=== PATIENT | male | born 1930 | race Caucasian/White ===

== ENCOUNTER 2016-06-07 06:50 | Day surgery (SDC) | payer MEDICARE, BC ==
--- NOTE | 2016-06-06 17:05 | NUR ---
NN PT HAS AN IMPLANTED PACEMAKER, MODEL BIOTRONIC CARDIO MESSANGER SMART. IT WAS INSERTED BY DR. PEPE VANEGAS. PT WILL BRING INFORMATION CARD WITH HIM TOMORROW.
[~2016-06-07] VITALS: Ht 179.1 cm; Wt 76.0 kg
[~2016-06-07 06:50] MED LIST: AMIO200T35 PO; ATOR20TA59 PO; CARV12.52 PO; CHOL100018 PO; DILT240C96 PO; DIPH25CA84 PO; DOCU100C PO; DUTA0.5C9 PO; FEXO180T94 PO; LACT1CAP80 PO; LEVO137T2 PO; LORA1TAB3 PO; LOSA100T44 PO; MAGN400T25 PO; MOME17SP2 EA NOSTRIL; MULT-806 PO; NIAC500C9 PO; RANI-252 PO
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
--- OUTSIDE RECORDS SUMMARY | 2016-06-07 06:54 | XMS REPORT | Continuity of Care Document ---
Author Author [facility] Address [address] [place] [address] Phone Care Team Providers Care Garbage Collector Name Role Phone Anthony Bennett PP Unavailable Sb Vera RP Unavailable Payers Payer name Insurance type Covered republican ID Authorization(s) Unknown Problems Condition Effective Dates (start - stop) Clinical Status SENSONE[place] HEAR LOSS ASYM - *Chronic Tinnitus, unspecified - *Chronic HYPERTENSION NOS - EPISTAXIS - [...] hearing loss of combined types - *Chronic Cough - *Chronic Closed fracture of distal phalanx or phalanges of hand - *Acute Other seborrheic keratosis - *Resolved Colon polyps - *Chronic Unexplained weight loss - *Acute Sensorineural hearing loss of combined types - *Chronic DM (diabetes mellitus) - *Controlled Sinusitis - *Acute Postlaminectomy syndrome of lumbar region - *Symptomatic Radiculitis, Thoracic or Lumbar - *Symptomatic Flat-back syndrome - *Symptomatic Right groin mass - *Chronic Rhinitis sicca - *Chronic Sinusitis, acute maxillary - *Acute Fracture of metatarsal bone(s), closed - *Acute Lumbago - *Chronic Postlaminectomy syndrome of lumbar region - *Chronic Other lordosis, acquired - *Chronic Lumbosacral spondylosis without myelopathy - *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 - Active allopurinol 300 mg tablet take [...] oral route every day 0 - Active levothyroxine 150 mcg tablet Take 1 tablet by mouth every day. 2013 - Active Immunizations Vaccine Date Status Comments Td (7 yrs or older) completed Flu (split) (3 yrs or older) completed Flu (split) (3 yrs or older) completed Results Test Name Date and Time Measure Units Reference Range Abnormal Flag Comments Unknown Vital Signs Date / Time: Height Weight Pulse Rate Blood Pressure Temperature Unknown Procedures Procedure Date Unknown Encounters Encounter Location Date Patient Visit [facility] Audiology Patient Visit Conversion Patient Visit [facility] [place] Patient Visit [facility] Patient [facility] Patient [facility] Patient Visit [facility] [place] Patient [facility] Patient [facility] Patient [facility] Patient [facility] Patient [facility] Patient Visit [facility] [place] Patient Visit [facility] Patient Visit [facility] New FM Patient [facility] FM Patient Visit [facility] [place] Patient Visit [facility] New FM Patient Visit [facility] New FM Patient Visit [facility] Audiology Patient Visit [facility] Patient [facility] Patient Visit [facility] Audiology [facility] FM Patient Visit [facility] Ortho Patient Visit [facility] [place] Patient Visit [facility] New FM Patient Visit [facility] Audiology Patient Visit [facility] New FM Patient Visit [facility] Pain Patient Visit [facility] New FM Patient Visit [facility] ENT Patient Visit [facility] E21 Pod Patient Visit [facility] Pain Patient Visit [facility] Audiology Patient Visit [facility] New FM Advance Directives Directive Effective Date Unknown
--- OUTSIDE RECORDS SUMMARY | 2016-06-07 06:54 | XMS REPORT | Referral Summary ---
Author Author [facility] Organization [facility] Address Unknown Phone Unavailable Care Team Providers Care Cephalometric Technician Name Role Phone Nelson Powell Primary Care Physician [phone] Encounter Date(s): 01/25/16 - 01/25/16 [facility] [address] [place], [place] [address] Discharge Diagnosis: Actinic keratoses Discharge Diagnosis: Capillary hemangioma Discharge Diagnosis: Seborrheic keratosis Discharge Diagnosis: Solar degeneration Discharge Disposition: 01-Home or Self Care Attending Physician: Pranav Gomez MD Referring Physician: Lurdes Powell MD Vital Signs No data available for this section Problem List Condition Effective Dates Status Health Status Informant Allergic Active rhinitis(Confirmed) Sensorineural Active hearing loss, asymmetrical(Confirm ed) Cardiac Active arrhythmia(Confirmed ) Epistaxis(Confirmed) Active Flat back Active syndrome(Confirmed) Fracture of Active wrist-(R)(Confirmed) Gastric Active reflux(Confirmed) Gout(Confirmed) Active Hearing Active loss(Confirmed) Hyperlipidemia(Confi Active rmed) Hypertension(Confirm Active ed) Irregular Active heartbeat(Confirmed) Low back pain Active (finding)(Confirmed) Lumbar Active post-laminectomy syndrome (disorder)(Confirmed ) Lumbosacral Active neuritis(Confirmed) 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 ) Melanoma(Confirmed) Active Rheumatoid Active arthritis(Confirmed) Sinus Active infection(Confirmed) Allergies, Adverse Reactions, Alerts Substance Reaction Severity Status acetaminophen Active morphine Active neomycin Active oxyCODONE Active penicillin Active Medications Maggie Allergy 60 mg oral tablet 60 mg 1 tabs, Oral, Daily, # 60 tabs, 3 Refill(s), Pharmacy: [facility] # [id number], 1 tabs Oral Daily Start Date: 09/20/15 Status: Ordered Maggie-D 24 Hour Allergy & Congestion 180 mg-240 mg oral tablet, extended release tabs, Oral, Daily, 0 Refill(s) Start Date: 10/17/13 Status: Ordered amiodarone 0 Refill(s) Start Date: 10/17/13 Status: Ordered Avodart 0.5 mg oral capsule 0.5 mg 1 caps, Oral, Daily, # 90 caps, 5 Refill(s), Pharmacy: [facility] # [id number], 1 caps Oral Daily Start Date: 09/20/15 Status: Ordered Cartia XT 240 mg/24 hours oral capsule, extended release See Instructions, TAKE ONE CAPSULE BY MOUTH EVERY DAY, # 90 caps, 3 Refill(s), Pharmacy: [facility] #[id number], TAKE ONE CAPSULE BY MOUTH EVERY DAY Start Date: 09/20/15 Status: Ordered carvedilol 6.25 mg oral tablet 1 tabs, Oral, BID, # 60 tabs, 0 Refill(s) Start Date: 10/17/13 Status: Ordered Coreg 6.25 mg oral tablet 6.25 mg 1 tabs, Oral, BID, # 180 tabs, 8 Refill(s), Pharmacy: [facility] # [id number], 1 tabs Oral BID Start Date: 09/20/15 Status: Ordered Dulcolax Stool Softener 100 mg oral capsule 1 caps, Oral, BID, as needed for constipation, # 20 caps, 0 Refill(s) Start Date: 10/17/13 Status: Ordered Klor-Con M20 oral tablet, extended release 20 mEq 1 tabs, Oral, Daily, # 90 tabs, 8 Refill(s), Pharmacy: [facility] # [id number], 1 tabs Oral Daily Start Date: 09/20/15 Status: Ordered levothyroxine 137 mcg (0.137 mg) oral tablet 137 mcg 1 tabs, Oral, Daily, # 90 tabs, 7 Refill(s), Pharmacy: [facility] #[id number], 1 tabs Oral Daily Start Date: 09/20/15 Status: Ordered Lipitor 20 mg oral tablet 20 mg 1 tabs, Oral, Daily, # 90 tabs, 9 Refill(s), Pharmacy: [facility] # [id number], 1 tabs Oral Daily Start Date: 09/20/15 Status: Ordered losartan 100 mg oral tablet 100 mg 1 tabs, Oral, Daily, # 90 tabs, 9 Refill(s), Pharmacy: [facility] # [id number], 1 tabs Oral Daily Start Date: 09/20/15 Status: Ordered losartan-hydrochlorothiazide 100 mg-25 mg oral tablet 1 tabs, Oral, Daily, # 30 tabs, 0 Refill(s) Start Date: 10/17/13 Status: Ordered magnesium oxide Oral, 0 Refill(s) Start Date: 10/17/13 Status: Ordered multivitamin Daily, 0 Refill(s) Start Date: 10/17/13 Status: Ordered niacin 500 mg oral tablet 2 tabs, Oral, TID, # 180 tabs, 0 Refill(s) Start Date: 10/17/13 Status: Ordered Pacerone 200 mg oral tablet 1/2 tabs, Oral, Daily, # 45 tabs, 10 Refill(s), Pharmacy: [facility] # [id number], 1/2 tabs Oral Daily,x90 days Start Date: 09/20/15 Stop Date: 06/06/18 Status: Ordered Probiotic Formula caps, Oral, Daily, 0 Refill(s) Start Date: 10/17/13 Status: Ordered Robaxin-750 oral tablet 750 mg 1 tabs, Oral, BID, # 60 tabs, 1 Refill(s), Pharmacy: [facility] # [id number], 1 tabs Oral BID Start Date: 09/20/15 Status: Ordered Vitamin D3 1000 intl units oral tablet 1 tabs, Oral, Daily, # 30 tabs, 0 Refill(s) Start Date: 10/17/13 Status: Ordered Zantac 150 oral tablet 150 mg 1 tabs, Oral, Daily, # 90 tabs, 4 Refill(s), Pharmacy: [facility] # [id number], 1 tabs Oral Daily Start Date: 09/20/15 Status: Ordered Results No data available for this section Immunizations Vaccine Date Refusal Reason hepatitis A adult vaccine 06/06/04 influenza virus vaccine, H1N1, inactivat 03/31/09 influenza virus vaccine, inactivated 12/26/10 influenza virus vaccine, inactivated 12/27/09 influenza virus vaccine, inactivated 12/07/08 influenza virus vaccine, inactivated 01/13/08 influenza virus vaccine, inactivated 01/16/07 influenza virus vaccine, inactivated 01/15/06 influenza virus vaccine, inactivated 01/12/99 influenza virus vaccine, inactivated 01/11/98 influenza virus vaccine, inactivated 01/21/97 influenza virus vaccine, live 01/27/13 influenza virus vaccine, live 01/09/12 pneumococcal 23-polyvalent vaccine 03/31/09 tetanus-diphth toxoids (Td) adult/adol 06/19/13 zoster vaccine live 05/11/10 Procedures Procedure Date Related Diagnosis Body Site Destruction (eg, laser surgery, 01/25/16 electrosurgery, cryosurgery, chemosurgery, surgical curettement), premalignant lesions (eg, actinic keratoses); first lesion Destruction (eg, laser surgery, 01/25/16 electrosurgery, cryosurgery, chemosurgery, surgical curettement), premalignant lesions (eg, actinic keratoses); second through 14 lesions, each (List separately in addition to code for first lesion) Carpal tunnel syndrome-(R) Hand Colonoscopy with polypectomy Hernia repair-Inguinal, bilateral Release-Trigger finger (R) Hand Release-Trigger Finger (L) Hand Repair-Nasal Septum Rotator cuff repair-(R) subacromial decompression Pqrxzjz-Pkxd-[id number] Pacemaker Lrngcxx-P2-T6 Fusion and Laminectomy Surgery-Prostate Tonsillectomy Social History Social History Type Response Smoking Status Former smoker; Type: Cigarettes Assessment and Plan Extracted from: Title: Ambulatory Patient Education Author: Pranav Gomez MD Date: 01/25/16 Family Medicine Actinic Keratosis Actinic keratosis is a precancerous growth on the skin. This means it could develop into skin cancer if it is not treated. About 1% of actinic keratoses turn into skin cancer within a year. It is important to have all such growths removed to prevent them from developing into skin cancer. CAUSES Actinic keratosis is caused by getting too much ultraviolet (UV) radiation from the sun or other UV light sources. RISK FACTORS Factors that increase your chances of getting actinic keratosis include: Having light-colored skin and blue eyes. Having blonde or red hair. Spending a lot of time in the sun. Age. The risk of actinic keratosis increases with age. SYMPTOMS Actinic keratosis growths look like scaly, rough spots of skin. They can be as small as a pinhead or as big as a quarter. They may itch, hurt, or feel sensitive. Sometimes there is a little tag of pink or batres skin growing off them. In some cases, actinic keratoses are easier felt than seen. They do not go away with the use of moisturizing lotions or creams. Actinic keratoses appear most often on areas of skin that get a lot of sun exposure. These areas include the: Scalp. Face. Ears. Lips. Upper back. Backs of the hands. Forearms. DIAGNOSIS Your health care provider can usually tell what is wrong by performing a physical exam. A tissue sample (biopsy) may also be taken and examined under a microscope. TREATMENT Actinic keratosis can be treated several ways. Most treatments can be done in your health care provider's office. Treatment options may include: Curettage. A tool is used to gently scrape off the growth. Cryosurgery. Liquid nitrogen is applied to the growth to freeze it. The growth eventually falls off the skin. Medicated creams, such as 5-fluorouracil or imiquimod. The medicine destroys the cells in the growth. Chemical peels. Chemicals are applied to the growth and the outer layers of skin are peeled off. Photodynamic therapy. A drug that makes your skin more sensitive to light is applied to the skin. A strong, blue light is aimed at the skin and destroys the growth. PREVENTION To prevent future sun damage: Try to avoid the sun between 10:00 a.m. and 4:00 p.m. when it is the strongest. Use a sunscreen or sunblock with SPF 30 or greater. Apply sunscreen at least 30 minutes before exposure to the sun. Always wear protective hats, clothing, and sunglasses with UV protection. Avoid medicines, herbs, and foods that increase your sensitivity to sunlight. Avoid tanning beds. HOME CARE INSTRUCTIONS If your skin was covered with a bandage, change and remove the bandage as directed by your health care provider. Keep the treated area dry as directed by your health care provider. Apply any creams as prescribed by your health care provider. Follow the directions carefully. Check your skin regularly for any changes. Visit a skin doctor (information technology administrator) every year for a skin exam. SEEK MEDICAL CARE IF: Your skin does not heal and becomes irritated, red, or bleeds. You notice any changes or new growths on your skin. This information is not intended to replace advice given to you by your health care provider. Make sure you discuss any questions you have with your health care provider. Document Released: 06/08/2009 Document Revised: 04/02/2015 Document Reviewed: [employer] Patient Education 2016 [employer] Seborrheic Keratosis Seborrheic keratosis is a common, noncancerous (benign) skin growth that can occur anywhere on the skin.It looks like "stuck-on," waxy, rough, navarrete, brown, or black spots on the skin. These skin growths can be flat or raised.They are often called "barnacles" because of their pasted-on appearance.Usually, these skin growths appear in adulthood, around age 30, and increase in number as you age. They may also develop during or following estrogen therapy. Many people may only have one growth appear in their lifetime, while some people may develop many growths. CAUSES It is unknown what causes these skin growths, but they appear to run in families. SYMPTOMS Seborrheic keratosis is often located on the face, chest, shoulders, back, or other areas. These growths are: Usually painless, but may become irritated and itchy. Yellow, brown, black, or other colors. Slightly raised or have a flat surface. Sometimes rough or wart-like in texture. Often waxy on the surface. Round or oval-shaped. Sometimes "stuck-on" in appearance. Sometimes single, but there are usually many growths. Any growth that bleeds, itches on a regular basis, becomes inflamed, or becomes irritated needs to be evaluated by a hide and skin classer (information technology administrator). DIAGNOSIS Diagnosis is mainly based on the way the growths appear. In some cases, it can be difficult to tell this type of skin growth from skin cancer. A skin growth tissue sample (biopsy) may be used to confirm the diagnosis. TREATMENT Most often, treatment is not needed because the skin growths are benign.If the skin growth is irritated easily by clothing or jewelry, causing it to scab or bleed, treatment may be recommended. Patients may also choose to have the growths removed because they do not like their appearance. Most commonly, these growths are treated with cryosurgery. In cryosurgery, liquid nitrogen is applied to "freeze" the growth. The growth usually falls off within a matter of days. A blister may form and dry into a scab that will also fall off. After the growth or scab falls off, it may leave a dark or light spot on the skin. This color may fade over time, or it may remain permanent on the skin. HOME CARE INSTRUCTIONS If the skin growths are treated with cryosurgery, the treated area needs to be kept clean with water and soap. SEEK MEDICAL CARE IF: You have questions about these growths or other skin problems. You develop new symptoms, including: A change in the appearance of the skin growth. New growths. Any bleeding, itching, or pain in the growths. A skin growth that looks similar to seborrheic keratosis. This information is not intended to replace advice given to you by your health care provider. Make sure you discuss any questions you have with your health care provider. Document Released: 04/14/2011 Document Revised: 06/03/2012 Document Reviewed: [employer] Interactive Patient Education 2016 [employer]. Gupta Angioma Gupta angiomas are noncancerous (benign) skin growths. They are made up of a clump of blood vessels. They occur most often in people over the age of 30. CAUSES The cause of these skin growths is unknown, but they appear to run in families. SYMPTOMS Gupta angiomas are smooth, round, red bumps on the skin. They can be as small as a pinhead or as big as a pencil eraser. The color may darken to a purplish red over time. Gupta angiomas are usually found on the trunk, but they can occur anywhere on the body. They are painless, but they may bleed if they are injured. The bleeding is not serious and will stop when firm pressure is applied. DIAGNOSIS Your health care provider can usually tell what is wrong by performing a physical exam. A tissue sample (biopsy) may also be taken and examined under a microscope. TREATMENT Usually no treatment is needed for gupta angiomas. They may be removed for improved appearance (cosmetic) reasons. Sometimes, gupta angiomas come back after removal. Removal methods include: Electrocautery. Heat is used to burn the growth off the skin. Cryosurgery. Liquid nitrogen is applied to the growth to freeze it. The growth eventually falls off the skin. Surgery. HOME CARE INSTRUCTIONS If your skin was covered with a bandage, change and remove the bandage as directed by your health care provider. Check your skin regularly for any changes. SEEK MEDICAL CARE IF: You notice any changes or new growths on your skin. This information is not intended to replace advice given to you by your health care provider. Make sure you discuss any questions you have with your health care provider. Document Released: 05/21/2002 Document Revised: 04/02/2015 Document Reviewed: [employer] Interactive Patient Education 2016 [employer] No follow up information was provided. Extracted from: Title: Office Visit Note Author: Pranav Gomez MD Date: 01/25/16 Assessment/Plan Actinic keratoses Capillary hemangioma Seborrheic keratosis Solar degeneration
--- OUTSIDE RECORDS SUMMARY | 2016-06-07 06:54 | XMS REPORT | Referral Summary ---
Author Organization Unknown Address Unknown Phone Unavailable Care Team Providers Care Human Service Worker Name Role Phone Garry Ramirez Primary Care Physician [phone] Encounter VC Date(s): 04/07/14 - 04/07/14 [facility] Jose Alberto, Audiology [address] [place] [address] [place] [address] [facility] Discharge Diagnosis: Sinus infection Discharge Diagnosis: Sensorineural hearing loss, asymmetrical Discharge Disposition: Home or Self Care Attending Physician: Laura Armstrong Admitting Physician: Laura Armstrong Referring Physician: Garry Ramirez MD Vital Signs No data available for [...] neomycin Active oxyCODONE Active penicillin Active Medications Maggie-D 24 Hour Allergy & Congestion 180 mg-240 mg oral tablet, extended release tabs, Oral, Daily, 0 Refill(s) Start Date: 10/17/13 Status: Ordered amiodarone 0 Refill(s) Start Date: 10/17/13 Status: Ordered Avodart 0.5 mg oral capsule 1 caps, Oral, Daily, # 30 caps, 0 Refill(s) Start Date: 10/17/13 Status: Ordered Cartia XT 240 mg/24 hours oral capsule, extended release See Instructions, TAKE ONE CAPSULE BY MOUTH EVERY DAY, # 30 caps, 4 Refill(s), eRx: [facility] #[id number], TAKE ONE CAPSULE BY MOUTH EVERY DAY Special Instructions: TAKE ONE CAPSULE BY MOUTH EVERY DAY Start Date: 02/09/14 Status: Ordered carvedilol 6.25 mg oral tablet 1 tabs, Oral, BID, # 60 tabs, 0 Refill(s) Start Date: 10/17/13 Status: Ordered Dulcolax Stool Softener 100 mg oral capsule 1 caps, Oral, BID, as needed for constipation, # 20 caps, 0 Refill(s) Start Date: 10/17/13 Status: Ordered Klor-Con mEq, Oral, BID, 0 Refill(s) Start Date: 10/17/13 Status: Ordered levothyroxine 150 mcg (0.15 mg) oral tablet See Instructions, TAKE ONE TABLET BY MOUTH EVERY DAY, # 30 tabs, 2 Refill(s), eRx: [facility] #[id number], TAKE ONE TABLET BY MOUTH EVERY DAY Special Instructions: TAKE ONE TABLET BY MOUTH EVERY DAY Start Date: 12/01/13 Status: Ordered Lipitor 20 mg oral tablet 1 tabs, Oral, Daily, # 30 tabs, 0 Refill(s) Start Date: 10/17/13 Status: Ordered losartan-hydrochlorothiazide 100 mg-25 mg oral tablet 1 tabs, Oral, Daily, # 30 tabs, 0 Refill(s) Start Date: 10/17/13 Status: Ordered magnesium oxide Oral, 0 Refill(s) Start Date: 10/17/13 Status: Ordered metFORMIN 500 mg oral tablet See Instructions, TAKE ONE TABLET BY MOUTH TWICE A DAY WITH MORNING AND EVENING MEALS, # 60 tabs, 2 Refill(s), eRx: [facility] #[id number], TAKE ONE TABLET BY MOUTH TWICE A DAY WITH MORNING AND EVENING MEALS Special Instructions: TAKE ONE TABLET BY MOUTH TWICE A DAY WITH MORNING AND EVENING MEALS Start Date: 12/01/13 Status: Ordered multivitamin Daily, 0 Refill(s) Start Date: 10/17/13 Status: Ordered niacin 500 mg oral tablet 2 tabs, Oral, TID, # 180 tabs, 0 Refill(s) Start Date: 10/17/13 Status: Ordered Prevacid 15 mg oral delayed release capsule 1 caps, Oral, Daily, # 30 caps, 0 Refill(s) Start Date: 10/17/13 Status: Ordered Probiotic Formula caps, Oral, Daily, 0 Refill(s) Start Date: 10/17/13 Status: Ordered Vitamin D3 1000 intl units oral tablet 1 tabs, Oral, Daily, # 30 tabs, 0 Refill(s) Start Date: 10/17/13 Status: Ordered Results No data available for [...] Procedures Procedure Date Related Diagnosis Body Site Carpal tunnel syndrome-(R) Hand Colonoscopy with polypectomy Hernia repair-Inguinal, bilateral Release-Trigger finger (R) Hand Release-Trigger Finger (L) Hand Repair-Nasal Septum Rotator cuff repair-(R) subacromial decompression Jvilhfq-Xoxu-jcodvsm Pacemaker Apklybn-Y3-W3 Fusion and Laminectomy Surgery-Prostate Tonsillectomy Social History Social History Type Response Smoking Status Former smoker; Type: Cigarettes Assessment and Plan No data available for this section
--- OUTSIDE RECORDS SUMMARY | 2016-06-07 06:54 | XMS REPORT | Referral Summary ---
Author Author [facility] Organization [facility] Address Unknown Phone Unavailable Care Team Providers Care Gem Technician Name Role Phone Garry Ramirez Primary Care Physician [phone] Encounter VC Date(s): 09/01/14 - 09/01/14 [facility] Audiology [address] [place] [address] [place] Alexis [id number] - Discharge Disposition: 01-Home or Self Care Attending Physician: Laura Armstrong Admitting Physician: Laura Armstrong Vital Signs No data available for this [...] DAY, # 30 caps, 4 Refill(s), eRx: [facility] #[id number], TAKE ONE CAPSULE BY MOUTH EVERY DAY [...] DAY, # 30 tabs, 2 Refill(s), eRx: [facility] #[id number], TAKE ONE TABLET BY MOUTH EVERY DAY [...] MEALS, # 60 tabs, 2 Refill(s), eRx: [facility] #[id number], TAKE ONE TABLET BY MOUTH TWICE A [...] Repair-Nasal Septum Rotator cuff repair-(R) subacromial decompression Pejdxvh-Cqgx-mynarzw Pacemaker Tofjvzo-W2-N5 Fusion and Laminectomy Surgery-Prostate Tonsillectomy Social History Social History Type Response Smoking Status Former smoker; Type: Cigarettes Assessment and Plan No data available for this section
--- OUTSIDE RECORDS SUMMARY | 2016-06-07 06:55 | XMS REPORT | Continuity of Care Document ---
Author Author [facility] Address Unknown Phone Unavailable Care Team Providers Care Lead Recoverer Name Role Phone Anthony Bennett PP Unavailable Sb Vera RP Unavailable Payers Payer name Insurance type Covered constitution party ID Authorization(s) Unknown Problems Condition Effective Dates (start - stop) Clinical Status Lumbago - *Chronic Postlaminectomy syndrome of lumbar region - *Chronic Other lordosis, acquired - *Chronic Lumbosacral spondylosis without myelopathy - *Chronic HYPERTENSION NOS - EPISTAXIS - [...] combined types - *Chronic Cough - *Chronic Other seborrheic keratosis - *Resolved Colon polyps - *Chronic Unexplained weight loss - *Acute Sensorineural hearing loss of combined types - *Chronic DM (diabetes mellitus) - *Controlled Sinusitis - *Acute Postlaminectomy syndrome of lumbar region - *Symptomatic Radiculitis, Thoracic or Lumbar - *Symptomatic Flat-back syndrome - *Symptomatic Right groin mass - *Chronic Rhinitis sicca - *Chronic Sinusitis, acute maxillary - *Acute Sensorineural hearing loss of combined [...] bedtime as needed 50 MG - Active Greig 5 mg-325 mg tablet TAKE 1 TABLET [...] Height Weight Pulse Rate Blood Pressure Temperature /14:31:00 71.00 in 159.00 lbs 110/64 mm[Hg] 98.2 F Procedures Procedure Date Unknown Encounters Encounter Location Date Patient Visit [facility] FC Pain Patient Visit Conversion Patient Visit [facility] [place] Patient Visit [facility] Patient Visit [facility] Patient Visit [facility] Patient Visit [facility] [place] Patient [place] [facility] Patient Visit [facility] Patient Visit [facility] Patient Visit [facility] Patient Visit [facility] Patient Visit [facility] [place] Patient Visit [facility] Patient Visit [facility] Patient Visit [facility] Patient Visit [facility] Patient Visit [facility] Patient Visit [facility] Pain Patient Visit [facility] Patient Visit [facility] Patient Visit [facility] Patient Visit [facility] Patient Visit [facility] Patient Visit [facility] Patient Visit [facility] Patient Visit [facility] Pain Patient Visit [facility] Patient Visit [facility] Patient Visit [facility] Audiology Patient Visit [facility] Audiology Patient Visit [facility] Advance Directives Directive Effective Date Unknown
--- OUTSIDE RECORDS SUMMARY | 2016-06-07 06:55 | XMS REPORT | Referral Summary ---
Author Organization Unknown Address Unknown Phone Unavailable Care Team Providers Care Ssis Architect Name Role Phone Garry Ramirez Primary Care Physician [phone] Encounter [facility] Date(s): 07/07/14 - 07/07/14 [facility], Jose Alberto, Audiology [address] [place] [address] [place] [address] [facility] Discharge Diagnosis: Sensorineural hearing loss, bilateral Discharge Disposition: Home or Self Care Attending [...] DAY, # 30 caps, 4 Refill(s), eRx: [facility] #[id number], TAKE ONE CAPSULE BY MOUTH EVERY DAY [...] DAY, # 30 tabs, 2 Refill(s), eRx: [facility] #[id number], TAKE ONE TABLET BY MOUTH EVERY DAY [...] MEALS, # 60 tabs, 2 Refill(s), eRx: [facility] #[id number], TAKE ONE TABLET BY MOUTH TWICE A [...] Repair-Nasal Septum Rotator cuff repair-(R) subacromial decompression Wvlyypk-Yfmq-gwfelyt Pacemaker Xxtpmxk-Y9-O1 Fusion and Laminectomy Surgery-Prostate Tonsillectomy Social History Social History Type Response Smoking Status Former smoker; Type: Cigarettes Assessment and Plan No data available for this section
--- OUTSIDE RECORDS SUMMARY | 2016-06-07 06:55 | XMS REPORT | Referral Summary ---
Author Author [facility], Audiology Organization [facility] Address Unknown Phone Unavailable Care Team Providers Care Donor Services Specialist Name Role Phone Nelson Powell Primary Care Physician [phone] Encounter [facility] Date(s): 04/17/16 - 04/17/16 [facility], Audiology [address] [place] [address] WIL[place] Alexis [address] [facility] Discharge Disposition: 01-Home or Self Care Attending [...] Daily, # 60 tabs, 3 Refill(s), Pharmacy: [facility] # [id number], 1 tabs Oral Daily Start Date: 09/20/15 Status: Ordered Maggie-D 24 Hour Allergy & Congestion 180 mg-240 mg oral tablet, extended release tabs, Oral, Daily, 0 Refill(s) Start Date: 10/17/13 Status: Ordered amiodarone 0 Refill(s) Start Date: 10/17/13 Status: Ordered Avodart 0.5 mg oral capsule 0.5 mg 1 caps, Oral, Daily, # 90 caps, 5 Refill(s), Pharmacy: [facility] # [id number], 1 caps Oral Daily Start Date: 09/20/15 Status: Ordered Cartia XT 240 mg/24 hours oral capsule, extended release See Instructions, TAKE ONE CAPSULE BY MOUTH EVERY DAY, # 90 caps, 3 Refill(s), Pharmacy: [facility] #[id number], TAKE ONE CAPSULE BY MOUTH EVERY DAY Start Date: 09/20/15 Status: Ordered carvedilol 6.25 mg oral tablet 1 tabs, Oral, BID, # 60 tabs, 0 Refill(s) Start Date: 10/17/13 Status: Ordered Coreg 6.25 mg oral tablet 6.25 mg 1 tabs, Oral, BID, # 180 tabs, 8 Refill(s), Pharmacy: [facility] # [id number], 1 tabs Oral BID Start Date: 09/20/15 Status: Ordered Dulcolax Stool Softener 100 mg oral capsule 1 caps, Oral, BID, as needed for constipation, # 20 caps, 0 Refill(s) Start Date: 10/17/13 Status: Ordered Klor-Con M20 oral tablet, extended release 20 mEq 1 tabs, Oral, Daily, # 90 tabs, 8 Refill(s), Pharmacy: [facility] # [id number], 1 tabs Oral Daily Start Date: 09/20/15 Status: Ordered levothyroxine 137 mcg (0.137 mg) oral tablet 137 mcg 1 tabs, Oral, Daily, # 90 tabs, 7 Refill(s), Pharmacy: [facility] #[id number], 1 tabs Oral Daily Start Date: 09/20/15 Status: Ordered Lipitor 20 mg oral tablet 20 mg 1 tabs, Oral, Daily, # 90 tabs, 9 Refill(s), Pharmacy: [facility] # [id number], 1 tabs Oral Daily Start Date: 09/20/15 Status: Ordered losartan 100 mg oral tablet 100 mg 1 tabs, Oral, Daily, # 90 tabs, 9 Refill(s), Pharmacy: [facility] # [id number], 1 tabs Oral Daily Start Date: 09/20/15 Status: Ordered losartan-hydrochlorothiazide 100 mg-25 mg oral tablet 1 tabs, Oral, Daily, # 30 tabs, 0 Refill(s) Start Date: 10/17/13 Status: Ordered magnesium oxide Oral, 0 Refill(s) Start Date: 10/17/13 Status: Ordered mirtazapine 15 mg oral tablet 15 mg 1 tabs, Oral, Bedtime (once a day), # 30 tabs, 0 Refill(s), Pharmacy: [facility] #[id number], 1 tabs Oral Bedtime (once a day) Start Date: 01/26/16 Status: Ordered multivitamin Daily, 0 Refill(s) Start Date: 10/17/13 Status: Ordered niacin 500 mg oral tablet 2 tabs, Oral, TID, # 180 tabs, 0 Refill(s) Start Date: 10/17/13 Status: Ordered Pacerone 200 mg oral tablet 1/2 tabs, Oral, Daily, # 45 tabs, 10 Refill(s), Pharmacy: [facility] # [id number], 1/2 tabs Oral Daily,x90 days Start Date: 09/20/15 Stop Date: 06/06/18 Status: Ordered Probiotic Formula caps, Oral, Daily, 0 Refill(s) Start Date: 10/17/13 Status: Ordered Robaxin-750 oral tablet 750 mg 1 tabs, Oral, BID, # 60 tabs, 1 Refill(s), Pharmacy: [facility] # [id number], 1 tabs Oral BID Start Date: 09/20/15 Status: Ordered Vitamin D3 1000 intl units oral tablet 1 tabs, Oral, Daily, # 30 tabs, 0 Refill(s) Start Date: 10/17/13 Status: Ordered Zantac 150 oral tablet 150 mg 1 tabs, Oral, Daily, # 90 tabs, 4 Refill(s), Pharmacy: [facility] # [id number], 1 tabs Oral Daily Start Date: 09/20/15 Status: Ordered Results No data available for this section Immunizations Given and Recorded Vaccine Date Status Refusal Reason hepatitis A adult vaccine 06/06/04 Recorded influenza virus vaccine, H1N1, inactivat 03/31/09 Recorded influenza virus vaccine, inactivated 12/26/10 Recorded influenza virus vaccine, inactivated 12/27/09 Recorded influenza virus vaccine, inactivated 12/07/08 Recorded influenza virus vaccine, inactivated 01/13/08 Recorded influenza virus vaccine, inactivated 01/16/07 Recorded influenza virus vaccine, inactivated 01/15/06 Recorded influenza virus vaccine, inactivated 01/12/99 Recorded influenza virus vaccine, inactivated 01/11/98 Recorded influenza virus vaccine, inactivated 01/21/97 Recorded influenza virus vaccine, live 01/27/13 Given influenza virus vaccine, live 01/09/12 Given pneumococcal 23-polyvalent vaccine 03/31/09 Recorded tetanus-diphth toxoids (Td) adult/adol 06/19/13 Given zoster vaccine live 05/11/10 Recorded Procedures Procedure Date Related Diagnosis Body Site Carpal tunnel syndrome-(R) Hand Colonoscopy with polypectomy Hernia repair-Inguinal, bilateral Release-Trigger finger (R) Hand Release-Trigger Finger (L) Hand Repair-Nasal Septum Rotator cuff repair-(R) subacromial decompression Nnvplsj-Kqdr-pwpbgqe Pacemaker Lblazkc-P3-P6 Fusion and Laminectomy Surgery-Prostate Tonsillectomy Social History Social History Type Response Smoking Status Former smoker; Type: Cigarettes Assessment and Plan No data available for this section
--- OUTSIDE RECORDS SUMMARY | 2016-06-07 06:55 | XMS REPORT | Referral Summary ---
Author Organization Unknown Address Unknown Phone Unavailable Care Team Providers Care Safety Administrator Name Role Phone Garry Ramirez Primary Care Physician [phone] Encounter [facility] Date(s): 07/21/14 - 07/21/14 [facility] Ag[facility], Jose Alberto, Audiology [address] [place] [address] [place] [address] [facility] Discharge Diagnosis: Sensorineural hearing loss, asymmetrical Discharge [...] DAY, # 30 caps, 4 Refill(s), eRx: [facility] #[id number], TAKE ONE CAPSULE BY MOUTH EVERY DAY [...] DAY, # 30 tabs, 2 Refill(s), eRx: [facility] #[id number], TAKE ONE TABLET BY MOUTH EVERY DAY [...] MEALS, # 60 tabs, 2 Refill(s), eRx: [facility] #[id number], TAKE ONE TABLET BY MOUTH TWICE A [...] Repair-Nasal Septum Rotator cuff repair-(R) subacromial decompression Ufdewaa-Tlym-nvlxazf Pacemaker Lzkokon-C4-R2 Fusion and Laminectomy Surgery-Prostate Tonsillectomy Social History Social History Type Response Smoking Status Former smoker; Type: Cigarettes Assessment and Plan No data available for this section
--- OUTSIDE RECORDS SUMMARY | 2016-06-07 06:55 | XMS REPORT | Continuity of Care Document ---
Author Author [facility] Address Unknown Phone Unavailable Care Team Providers Care Cage Supervisor Name Role Phone Anthony Bennett PP Unavailable Sb Vera RP Unavailable Payers Payer name Insurance type Covered republican ID Authorization(s) Unknown Problems Condition Effective Dates (start - stop) Clinical Status URI (upper respiratory infection) - *Chronic HYPERTENSION NOS - EPISTAXIS - [...] *Fair Control Loss of weight - *Acute NEED FOR PROPHYLACTIC VACCINATION AND INOCULATION AGAINST [...] Dosage Effective Dates (start - stop) Status ALEAH ALLERGY (unknown strength) take 1 tablet by oral route every day - Active Prevacid 15 mg capsule,delayed release Take [...] bedtime as needed 50 MG - Active [place] 5 mg-325 mg tablet TAKE 1 TABLET [...] day with food 20 MEQ - Active losartan 100 mg-hydrochlorothiazide 25 mg [...] Height Weight Pulse Rate Blood Pressure Temperature /11:18:00 71.00 in 168.50 lbs 126/68 mm[Hg] 97.4 F Procedures Procedure Date Unknown Encounters Encounter Location Date Patient Visit [facility] Patient Visit Conversion Patient Visit [facility] New Surg Patient Visit [facility] Patient Visit [facility] Patient Visit [facility] Patient Visit [facility] [place] Patient Visit [facility] Patient Visit [facility] Patient Visit [facility] Patient Visit [facility] Patient Visit [facility] Patient Visit [facility] [place] Patient Visit [facility] Patient Visit [facility] New Surg Patient Visit [facility] New FM Patient Visit [facility] New FM Patient Visit [facility] Audiology Patient Visit [facility] Pain Patient Visit [facility] New FM Patient Visit [facility] Audiology Patient Visit [facility] New FM Patient Visit [facility] Ortho Patient Visit [facility] [place]urg Patient Visit [facility] New FM Patient Visit [facility] Audiology Patient Visit [facility] Patient Visit [facility] Pain Patient Visit [facility] Patient Visit [facility] ENT Patient Visit [facility] E21 Pod Patient Visit [facility] Pain Patient Visit [facility] Audiology Patient Visit [facility] Audiology Patient Visit [facility] Advance Directives Directive Effective Date Unknown
--- OUTSIDE RECORDS SUMMARY | 2016-06-07 06:55 | XMS REPORT | Continuity of Care Document ---
Author Author [facility] Organization [facility] Address Unknown Phone Unavailable Allergies Active Description Code Type Severity Reaction Onset Reported/Identified Relationship to Patient Clinical Status Yes acetaminophen NKMA N/A N/A 07/25/2013 Yes morphine NKMA N/A N/A 07/25/2013 Yes neomycin NKMA N/A N/A 07/25/2013 Yes oxyCODONE NKMA N/A N/A 07/25/2013 Yes penicillin NKMA N/A N/A 07/25/2013 Medications Problems Procedures Results Encounters ACCT No. Visit Date/Time Discharge Status Pt. Type Provider Facility Loc./Unit Complaint [id number] 06/19/2013 14:38:00 06/19/2013 23 :59:59 CLS Outpatient [id number] 05/20/2013 10:00:00 05/20/2013 23 :59:59 CLS Outpatient [id number] 05/14/2013 11:11:00 05/14/2013 23 :59:59 CLS Outpatient [id number] 05/05/2013 14:31:00 05/05/2013 23 :59:59 CLS Outpatient [id number] 05/05/2013 10:48:00 05/05/2013 23 :59:59 CLS Outpatient [id number] 04/22/2013 09:24:00 04/22/2013 23 :59:59 CLS Outpatient [id number] 04/04/2013 09:23:00 04/04/2013 23 :59:59 CLS Outpatient [id number] 02/28/2013 12:53:00 02/28/2013 23 :59:59 CLS Outpatient
--- OUTSIDE RECORDS SUMMARY | 2016-06-07 06:55 | XMS REPORT | Referral Summary ---
Author Organization Unknown Address Unknown Phone Unavailable Care Team Providers Care Front Sight Attacher Name Role Phone Garry Ramirez Primary Care Physician [phone] Encounter [facility] Date(s): 04/21/14 - 04/21/14 [facility], Jose Alberto, Audiology [address] [place] [address] [place] [address] [facility] Discharge Diagnosis: Sensorineural hearing loss, asymmetrical Discharge [...] DAY, # 30 caps, 4 Refill(s), eRx: [facility] #[id number], TAKE ONE CAPSULE BY MOUTH EVERY DAY [...] DAY, # 30 tabs, 2 Refill(s), eRx: [facility] #[id number], TAKE ONE TABLET BY MOUTH EVERY DAY [...] MEALS, # 60 tabs, 2 Refill(s), eRx: [facility] #[id number], TAKE ONE TABLET BY MOUTH TWICE A [...] Repair-Nasal Septum Rotator cuff repair-(R) subacromial decompression Glzfuae-Lcib-edeproo Pacemaker Higklud-U7-E4 Fusion and Laminectomy Surgery-Prostate Tonsillectomy Social History Social History Type Response Smoking Status Former smoker; Type: Cigarettes Assessment and Plan No data available for this section
--- OUTSIDE RECORDS SUMMARY | 2016-06-07 06:55 | XMS REPORT | Continuity of Care Document ---
Author Author Lolis Reece MA [facility] Ambulatory Address [address] [place] [id number] Phone Unavailable Care Team Providers Care Supervisor Matrix Name Role Phone Anthony Bennett PP Unavailable Sb Vera RP Unavailable Payers Payer name Insurance type Covered democrat ID Authorization(s) Unknown Problems Condition Effective Dates (start - stop) Clinical Status Postlaminectomy syndrome of lumbar region - *Symptomatic Radiculitis, Thoracic or Lumbar - *Symptomatic Flat-back syndrome - *Symptomatic HYPERTENSION NOS - EPISTAXIS - Unspecified disorder [...] Mellitus Type 2, Uncomplicated - *Fair Control Other seborrheic keratosis - *Chronic Unspecified hypertrophic [...] (diabetes mellitus) - *Controlled Sinusitis - *Acute Right groin mass - *Chronic Rhinitis sicca - *Chronic Sinusitis, acute maxillary - *Acute Loss of weight - *Acute Family History Family Member Diagnosis Age At [...] capsule by mouth every day. - Active lisinopril 20 mg tablet take 1 tablet (20MG) by oral route every day 20 MG - Active Lipitor 20 mg tablet take 1 tablet (20MG) by oral route every day 20 MG - Active Klor-Con M20 mEq tablet,extended release take 1 tablet (20MEQ) by oral route every day with food 20 MEQ - Active magnesium oxide 400 mg capsule bid - Active niacin (inositol niacinate) 500 mg capsule bid - Active Multiple Vitamins tablet take 1 by Oral route every for 1 day 0 2011 - Active Stool Softener 50 mg capsule take 1 capsule (50MG) by oral route every day at bedtime as needed 50 MG - Active lisinopril 20 mg-hydrochlorothiazide 25 mg tablet Take 1 tablet by mouth every day. - Active [place] 5 mg-325 mg tablet TAKE 1 TABLET [...] tablet by mouth at bedtime - Active Immunizations Vaccine Date Status Comments Flu (split) (3 yrs or older) completed Flu (split) (3 yrs or older) completed Results Test Name Date and Time Measure Units Reference Range Abnormal Flag Comments Unknown Vital Signs Date / Time: Height Weight Pulse Rate Blood Pressure Temperature /13:07:00 71.00 in 175.00 lbs 136/86 mm[Hg] 97.3 F Procedures Procedure Date Unknown Encounters Encounter Location Date Patient Visit [facility] Pain Patient Visit Conversion Patient Visit [facility] Surg Patient Visit [facility] Patient Visit [facility] Patient Visit [facility] Patient Visit [facility] Patient Visit [facility] Surg Patient Visit [facility] Patient Visit [facility] Patient Visit [facility] Patient Visit [facility] Patient Visit [facility] Patient Visit [facility] Surg Patient Visit [facility] Patient Visit [facility] Patient Visit [facility] Audiology Patient Visit [facility] Pain Patient Visit [facility] Patient Visit [facility] Audiology Patient Visit [facility] Surg Patient Visit [facility] Patient Visit [facility] Audiology Patient [facility] Patient Visit [facility] Patient Visit [facility] ENT Patient Visit [facility] Surg Patient Visit [facility] Advance Directives Directive Effective Date Unknown
--- OUTSIDE RECORDS SUMMARY | 2016-06-07 06:56 | XMS REPORT | Continuity of Care Document ---
Author Author Anthony Bennett MD Organization [facility] Ambulatory Address [address] [place] [address] Phone Care Team Providers Care Pigment Presser Name Role Phone Anthony Bennett PP Unavailable Sb Vera RP Unavailable Payers Payer name Insurance type Covered democrat ID Authorization(s) Unknown Problems Condition Effective Dates (start - stop) Clinical Status Sensorineural hearing loss of combined types - *Chronic HYPERTENSION NOS - EPISTAXIS - [...] *Fair Control Loss of weight - *Acute Cough - *Chronic URI (upper respiratory infection) - *Chronic Other seborrheic keratosis - *Chronic [...] *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 - Active [place] 5 mg-325 mg tablet TAKE 1 TABLET [...] day with food 20 MEQ - Active Tessalon 200 mg capsule take 1 capsule (200MG) by oral route 3 times every day as needed 200 MG - Active ALEAH ALLERGY (unknown strength) take 1 tablet by oral route every day - Active Immunizations Vaccine Date Status Comments Flu (split) (3 yrs or older) completed Flu (split) (3 yrs or older) completed Results Test Name Date and Time Measure Units Reference Range Abnormal Flag Comments Unknown Vital Signs Date / Time: Height Weight Pulse Rate Blood Pressure Temperature Unknown Procedures Procedure Date Unknown Encounters Encounter Location Date Patient Visit [facility] Audiology Patient Visit Conversion Patient Visit [facility] New [place]urg Patient Visit [facility] Patient Visit [facility] Patient [facility] Patient Visit [facility] Patient Visit [facility] [place] Patient Visit [facility] Patient [facility] Patient [facility] Patient [facility] Patient Visit [facility] Patient Visit [facility] [place] Patient Visit [facility] Patient Visit [facility] Patient Visit [facility] [place] Patient Visit [facility] Patient Visit [facility] Patient Visit [facility] Audiology Patient Visit [facility] Pain Patient Visit [facility] Patient Visit [facility] Audiology Patient Visit [facility] New Surg Patient Visit [facility] Patient Visit [facility] Audiology Patient Visit [facility] FM Patient Visit [facility] Pain Patient [facility] Patient Visit [facility] ENT Patient Visit [facility] Pain Patient Visit [facility] Audiology Patient Visit [facility] Advance Directives Directive Effective Date Unknown
--- OUTSIDE RECORDS SUMMARY | 2016-06-07 06:56 | XMS REPORT | Referral Summary ---
Author Organization Unknown Address Unknown Phone Unavailable Care Team Providers Care Shield Operator Name Role Phone Garry Ramirez Primary Care Physician [phone] Encounter [facility] Date(s): 05/19/14 - 05/19/14 [facility], Jose Alberto, Audiology [address] [place] [address] [place] [address] [facility] Discharge Diagnosis: Sensorineural hearing loss, bilateral Discharge [...] DAY, # 30 caps, 4 Refill(s), eRx: [facility] #[id number], TAKE ONE CAPSULE BY MOUTH EVERY DAY [...] DAY, # 30 tabs, 2 Refill(s), eRx: [facility] #[id number], TAKE ONE TABLET BY MOUTH EVERY DAY [...] MEALS, # 60 tabs, 2 Refill(s), eRx: [facility] #[id number], TAKE ONE TABLET BY MOUTH TWICE A [...] Repair-Nasal Septum Rotator cuff repair-(R) subacromial decompression Wrzzcau-Loqq-lyloqlm Pacemaker Zzjjudt-M2-E7 Fusion and Laminectomy Surgery-Prostate Tonsillectomy Social History Social History Type Response Smoking Status Former smoker; Type: Cigarettes Assessment and Plan No data available for this section
--- OUTSIDE RECORDS SUMMARY | 2016-06-07 06:56 | XMS REPORT | Referral Summary ---
Author Author [facility] Organization [facility] Address Unknown Phone Unavailable Care Team Providers Care Binder Operator Name Role Phone Garry Ramirez Primary Care Physician [phone] Encounter [facility] Date(s): 09/01/14 - 09/01/14 [facility], Audiology [address] [place] [address] [place] [id number] - Discharge Disposition: 01-Home or Self Care [...] DAY, # 30 caps, 4 Refill(s), eRx: [facility] #[id number], TAKE ONE CAPSULE BY MOUTH EVERY DAY [...] DAY, # 30 tabs, 2 Refill(s), eRx: [facility] #[id number], TAKE ONE TABLET BY MOUTH EVERY DAY [...] MEALS, # 60 tabs, 2 Refill(s), eRx: [facility] #[id number], TAKE ONE TABLET BY MOUTH TWICE A [...] Repair-Nasal Septum Rotator cuff repair-(R) subacromial decompression Dzsxyev-Aule-pcebueg Pacemaker Zooaiqp-U4-C8 Fusion and Laminectomy Surgery-Prostate Tonsillectomy Social History Social History Type Response Smoking Status Former smoker; Type: Cigarettes Assessment and Plan No data available for this section
--- OUTSIDE RECORDS SUMMARY | 2016-06-07 06:56 | XMS REPORT | Continuity of Care Document ---
Author Author Arleth Valera VC Ambulatory Address [address] [place] [address] Phone Care Team Providers Care Spring Production Supervisor Name Role Phone Anthony Bennett PP Unavailable Sb Vera RP Unavailable Payers Payer name Insurance type Covered libertarian ID Authorization(s) Unknown Problems Condition Effective Dates (start - stop) Clinical Status Loss of weight - *Acute HYPERTENSION NOS - EPISTAXIS - Unspecified disorder [...] Mellitus Type 2, Uncomplicated - *Fair Control Cough - *Chronic URI (upper respiratory infection) [...] Dosage Effective Dates (start - stop) Status KlcristianCon M20 mEq tablet,extended release take 1 tablet (20MEQ) by oral route every day with food 20 MEQ - Active Prevacid 15 mg capsule,delayed release [...] tablet by mouth every day. - Active [place] 5 mg-325 mg tablet TAKE 1 TABLET [...] tablet by mouth at bedtime - Active Tessalon 200 mg capsule take [...] Height Weight Pulse Rate Blood Pressure Temperature /09:24:00 71.00 in 168.00 lbs 114/62 mm[Hg] 98.3 F Procedures Procedure Date Unknown Encounters Encounter Location Date Patient Visit [facility] Surg Patient Visit Conversion Patient Visit [facility] Surg Patient Visit [facility] Patient Visit [facility] Patient Visit [facility] Patient Visit [facility] Patient Visit [facility] [place] Patient [facility] Patient [facility] Patient [facility] Patient [facility] Patient [facility] Patient [facility] Patient [facility] Patient Visit [facility] [place] Patient Visit [facility] Patient [facility] Patient Visit [facility] Audiology Patient Visit [facility] Pain Patient [facility] Patient Visit [facility] Audiology Patient Visit [facility] [place] Patient Visit [facility] Patient Visit [facility] Audiology Patient [facility] Patient Visit [facility] Pain Patient Visit [facility] FM Patient Visit [facility] ENT Patient Visit [facility] Pain Patient Visit [facility] Audiology Patient Visit [facility] Advance Directives Directive Effective Date Unknown
--- OUTSIDE RECORDS SUMMARY | 2016-06-07 06:56 | XMS REPORT | Referral Summary ---
Author Author [facility] Organization [facility] Address Unknown Phone Unavailable Care Team Providers Care Professor Of Physics Name Role Phone Nelson Powell Primary Care Physician [phone] Encounter VC Date(s): 01/25/16 - 01/25/16 [facility] [address] [place] [id number]- Discharge Disposition: 01-Home or Self Care Attending Physician: Lurdes Powell MD Admitting Physician: Lurdes Powell MD Vital Signs No [...] Daily, # 60 tabs, 3 Refill(s), Pharmacy: [facility] # [id number], 1 tabs Oral Daily Start Date: 09/20/15 Status: Ordered Maggie-D 24 Hour Allergy & Congestion 180 mg-240 mg oral tablet, extended release tabs, Oral, Daily, 0 Refill(s) Start Date: 10/17/13 Status: Ordered amiodarone 0 Refill(s) Start Date: 10/17/13 Status: Ordered Avodart 0.5 mg oral capsule 0.5 mg 1 caps, Oral, Daily, # 90 caps, 5 Refill(s), Pharmacy: [facility] # [id number], 1 caps Oral Daily Start Date: 09/20/15 Status: Ordered Cartia XT 240 mg/24 hours oral capsule, extended release See Instructions, TAKE ONE CAPSULE BY MOUTH EVERY DAY, # 90 caps, 3 Refill(s), Pharmacy: [facility] #[id number], TAKE ONE CAPSULE BY MOUTH EVERY DAY Start Date: 09/20/15 Status: Ordered carvedilol 6.25 mg oral tablet 1 tabs, Oral, BID, # 60 tabs, 0 Refill(s) Start Date: 10/17/13 Status: Ordered Coreg 6.25 mg oral tablet 6.25 mg 1 tabs, Oral, BID, # 180 tabs, 8 Refill(s), Pharmacy: [facility] # [id number], 1 tabs Oral BID Start Date: 09/20/15 Status: Ordered Dulcolax Stool Softener 100 mg oral capsule 1 caps, Oral, BID, as needed for constipation, # 20 caps, 0 Refill(s) Start Date: 10/17/13 Status: Ordered Klor-Con M20 oral tablet, extended release 20 mEq 1 tabs, Oral, Daily, # 90 tabs, 8 Refill(s), Pharmacy: [facility] # [id number], 1 tabs Oral Daily Start Date: 09/20/15 Status: Ordered levothyroxine 137 mcg (0.137 mg) oral tablet 137 mcg 1 tabs, Oral, Daily, # 90 tabs, 7 Refill(s), Pharmacy: [facility] #[id number], 1 tabs Oral Daily Start Date: 09/20/15 Status: Ordered Lipitor 20 mg oral tablet 20 mg 1 tabs, Oral, Daily, # 90 tabs, 9 Refill(s), Pharmacy: [facility] # [id number], 1 tabs Oral Daily Start Date: 09/20/15 Status: Ordered losartan 100 mg oral tablet 100 mg 1 tabs, Oral, Daily, # 90 tabs, 9 Refill(s), Pharmacy: [facility] # [id number], 1 tabs Oral Daily Start Date: 09/20/15 [...] Daily, # 45 tabs, 10 Refill(s), Pharmacy: [facility] # [id number], 1/2 tabs Oral Daily,x90 days Start Date: 09/20/15 Stop Date: 06/06/18 Status: Ordered Probiotic Formula caps, Oral, Daily, 0 Refill(s) Start Date: 10/17/13 Status: Ordered Robaxin-750 oral tablet 750 mg 1 tabs, Oral, BID, # 60 tabs, 1 Refill(s), Pharmacy: [facility] # [id number], 1 tabs Oral BID Start Date: 09/20/15 Status: Ordered Vitamin D3 1000 intl units oral tablet 1 tabs, Oral, Daily, # 30 tabs, 0 Refill(s) Start Date: 10/17/13 Status: Ordered Zantac 150 oral tablet 150 mg 1 tabs, Oral, Daily, # 90 tabs, 4 Refill(s), Pharmacy: [facility] # [id number], 1 tabs Oral Daily Start Date: 09/20/15 [...] Repair-Nasal Septum Rotator cuff repair-(R) subacromial decompression [id number] Pacemaker [id number] Fusion and Laminectomy Surgery-Prostate Tonsillectomy Social History Social History Type Response Smoking Status Former smoker; Type: Cigarettes Assessment and Plan No data available for this section
[2016-06-07] MEDS ORDERED: LIDOCAINE 1% (10mg/ml) 2ml SDV INJ ONE (07:00)
[2016-06-07] MEDS ORDERED: LR 1,000 ML IV SCH (07:00)
[2016-06-07 07:06] VITALS: BP 185/87; PULSE 70; RESP 12; TEMP 98.1; O2SAT 97; Ht 179.1 cm; Wt 76.0 kg
[2016-06-07 07:29] LABS: ANION GAP 9 MEQ/L (5-15); BUN/CREATININE RATIO 18 RATIO (6-26); CALCIUM 8.9 MG/DL (8.4-10.2); CHLORIDE 102 MEQ/L (98-107); CO2 - CARBON DIOXIDE 33 MEQ/L (22-30); GLOMERULAR FILTRATION RATE 71; GLUCOSE 170 MG/DL (75-110); POTASSIUM 3.8 MEQ/L (3.6-5); SODIUM 144 MEQ/L (134-144)
[2016-06-07] MEDS ORDERED: CLINDAMYCIN 600mg IVPB 50 ML IV ONE (08:00)
--- NOTE | 2016-06-07 09:11 | ANESPREOP ---
Anesthesia Record Date and Time DATE: 06/07/16 TIME: 09:08 Proposed Surgical Procedure EXCISION OF TUMOR TO RIGHT HELICAL RIM WITH FTSG NPO since: mn Allergies: Coded Allergies: Penicillins (Verified Allergy, Unknown, RASH, 06/07/16) diflunisal (Verified Allergy, Unknown, RASH, 06/07/16) ibuprofen (Verified Allergy, Unknown, RASH, 06/07/16) morphine (Verified Allergy, Unknown, VOMITING, 06/07/16) neomycin (Verified Allergy, Unknown, 06/07/16) oxycodone HCl (Verified Allergy, Unknown, 06/07/16) peanut (Verified Allergy, Unknown, 06/07/16) Ht/Wt/BMI Height: 5 ' 10.50 " Weight: 76.000 kg BMI: 23.7 kg/m2 Vital Signs Date Time Temp Pulse Resp B/P Pulse Ox O2 Delivery O2 Flow Rate FiO2 06/07/16 07:06 98.1 70 12 185/87 97 Room Air Medications Inpatient Medications Current Medications Medications (Trade) Dose Ordered Sig/Bandar Start Time Stop Time Status Last Admin Dose Admin Lactated Ringer's (Lactated Ringers) 1,000 ml @ 50 mls/hr Q20H 06/07/16 07:00 06/07/16 07:44 50 MLS/HR Amiodarone Hcl (Pacerone) 200 Mg Tablet, 0.5 TAB PO DAILY, (Reported) Last Taken: on 06/07/16 0615 Atorvastatin Calcium (Atorvastatin Calcium) 20 Mg Tablet, 1 TAB PO HS, (Reported) Last Taken: on 06/06/16 1900 Carvedilol (Carvedilol) 12.5 Mg Tablet, 1 TAB PO BID, (Reported) Last Taken: on 06/07/16 0615 Cholecalciferol (Vitamin D3) 1,000 Unit Tablet , 1 TAB PO DAILY, (Reported) Last Taken: on 06/06/16 0700 Diltiazem HCl (Diltiazem ER) 240 Mg Capsule.er , 1 CAP PO DAILY, (Reported) Last Taken: on 06/07/16 0615 Diphenhydramine HCl (Benadryl) 25 Mg Capsule, 1 CAP PO HS, (Reported) Last Taken: on 06/06/162014 Docusate Sodium (Stool Softener) 100 Mg Capsule , 1 CAP PO DAILY, (Reported) Last Taken: on 06/06/16 1730 Dutasteride (Avodart) 0.5 Mg Capsule, 1 TAB PO HS, (Reported) Last Taken: on 06/06/162029 Fexofenadine HCl (Maggie Allergy) 180 Mg Tablet, 1 TAB PO DAILY, (Reported) Last Taken: on 06/06/16 0700 Lactobacillus Combo No.10 (Probiotic) 1 Each Capsule, 1 CAP PO DAILY, (Reported) Last Taken: on 06/06/16 07 Levothyroxine Sodium (Levothyroxine Sodium) 137 Mcg Tablet, 1 TAB PO DAILY, (Reported) Last Taken: on 06/06/16 07 Lorazepam (Lorazepam) 1 Mg Tablet, 1 TAB PO HS, (Reported) Last Taken: on 06/06/162029 Losartan Potassium (Losartan Potassium) 100 Mg Tablet, 1 TAB PO DAILY, (Reported) Last Taken: on 06/07/1615 Magnesium Oxide (Mag-Oxide) 400 Mg Tablet, 1 TAB PO BID, (Reported) Last Taken: on 06/06/16 1700 Mometasone Furoate (Nasonex) 120 [place]/17 G [place], 2 SPRAY EA NOSTRIL DAILY, (Reported) Last Taken: on 06/05/162029 Multivitamins (Multivitamin) 1 Tab Tablet, 1 TAB PO DAILY, (Reported) Last Taken: on 06/06/16 07 Ranitidine HCl (Zantac 75) 75 Mg Tablet, 75 MG PO, (Reported) Last Taken: on 06/06/16 0630 Currently on Beta Karen: Yes Beta Karen Last Taken: 06/07/16614 CARVEDILOL Medical/Surgical History Anesthesia PMH: Reports: *Diabetes (TYPE 2 ), *Hypertension, Arthritis, Cancer (SKIN BCC,MELANOMA ), Cardiac Arrythmia (S/P PPM), Other ([place]), Pacemaker, Reflux (HX), Thyroid Disease, Denies: *Angina, *OH, Anesthesia Reactions (NO AIRWAY ISSUES, SLOW TO WAKE ), Asthma, CHF, COPD, CVA/Stroke/TIA, Clotting Problems, Glaucoma, Hiatal Hernia, Malignant Hyperthermia, Pneumonia, Seizures, Sleep Apnea, Tuberculosis Smoking Status: Never smoker Use Chewing Tobacco?: No Second Hand Exposure: No Substance Use Type: does not use Alcohol Intake: none Past Surgical History Orthopedic Surgeries: Yes - LAMINECTOMY,FUSION OFL2-L5,RODS IN BACK, BILAT CTR, BILAT TFR,RRTC Abdominal Surgeries: Yes - APPY,JUDY,HERNIA REPAIR Genitourinary Surgeries: Yes - TURP Cardiac Surgeries: Yes - PACEMAKER MAR 2009,HEART CATH 2012 Endocrine Surgeries: Reproductive Surgeries: Neurological Surgeries: Ear Surgeries: Nose Surgeries: Yes - SEPTOPLASTY,SINUS Throat Surgeries: Other Surgeries: Yes - COLONOSCOPY,SKIN CA REMOVAL Anesthesia Adverse Reactions: FOUND none Family Hx of Anesthesia Advers: none Hx of Motion Sickness: No Pertinent Findings Laboratory Tests 06/07/16 07:12 Physical Exam Respiratory: Lungs clear Cardiovascular: FOUND Regular rate, rhythm Airway Assessment Mallampati Score: I TMD: 3 Fingerbreadths Neck Extension: Fair Overall Assessment: No Airway Concerns ASA: 3 Plan Anesthesia Plan: TIVA, LMA, GETA, MAC Discussion Discussed risks/options/alternatives of anesthesia and questions answered. Patient consents. Nursing pain assessment noted. Present: Family Member Attestation Statement Prior to the delivery of any anesthetic medication, I examined the patient, developed the plan, obtained the patient's consent and discussed the risk and benefits of the procedure with the patient/guardian. SHELLY PARKINSON CRNA Jun 07, 2016 09:11
[2016-06-07] MEDS ORDERED: LIDOCAINE 1%/EPI 1:100,000 20ml MDV ONE (09:20)
[2016-06-07] MEDS ORDERED: MIDAZOLAM 2mg/2ml INJECTION ONE (09:22)
[2016-06-07] MEDS ORDERED: FENTANYL 100mcg/2ml INJECTION ONE (09:22)
[2016-06-07 10:07] VITALS: BP 148/71; PULSE 73; RESP 16; O2SAT 93
--- NOTE | 2016-06-07 10:14 | ANESPO ---
Post-Op Note Date 06/07/16 Time: 10:13 Status Pt Participated in Evaluation: Pt participated in person Vital Signs Date Time Temp Pulse Resp B/P Pulse Ox O2 Delivery O2 Flow Rate FiO2 06/07/16 07:06 98.1 70 12 185/87 97 Room Air Respiratory Function: Airway patent, Regular respirations Cardiovascular Function: Regular pulse Mental Status: Alert/oriented Pain Level Intensity: 0 Hydration: Taking po fluids Complications during Recovery None apparent Follow-Up Instructions Instructions Per Surgeon SHELLY PARKINSON CRNA Jun 07, 2016 10:14
[2016-06-07] MEDS ORDERED: ONDANSETRON 4mg/2ml INJECTION IV PRN (10:15)
[2016-06-07] MEDS ORDERED: ATROPINE 1mg/10ml Syringe IV PRN (10:15)
[2016-06-07] MEDS ORDERED: HYDROCODONE/APAP 5 mg/325 mg TABLET PO PRN (10:15)
--- NOTE | 2016-06-07 10:16 | PDPROCED ---
Procedure Note Date 06/07/16 Procedure Name Wide excision of malignant melanoma right helical rim with primary closure: Lesion size 1.4 cm, excision and final defect 3.8 cm Procedure Detail Preop dx: Malignant melanoma right mid helical rim Postop dx: Same Anesthesia: MAC EBL: Less than 10 ml Case: Clean Complications: None DALLAS STONER MD Jun 07, 2016 10:16
[2016-06-07 10:20] VITALS: BP 131/68; PULSE 72; RESP 16; O2SAT 92
[2016-06-07] MEDS ORDERED: CLIN-89 PO (10:20)
[2016-06-07] MEDS ORDERED: ACET1TAB12 PO (10:20)
[2016-06-07 10:35] VITALS: BP 131/71; PULSE 73; RESP 16; O2SAT 93
[2016-06-07 10:50] VITALS: BP 125/63; PULSE 72; RESP 20; O2SAT 94
--- NOTE | 2016-06-07 16:47 | OPNOTEF ---
DATE OF OPERATION 06/07/2016 PREOPERATIVE DIAGNOSIS Malignant melanoma, right mid helical rim. POSTOPERATIVE DIAGNOSIS Malignant melanoma, right mid helical rim. OPERATION Wide excision of malignant melanoma right helical rim with primary closure. Lesion size 1.4 cm. Excision and final defect 3.8 cm. SURGEON Gilma Benson M.D. ANESTHESIA MAC INDICATIONS The patient is an 85-year-old man who presented with the concern of a lesion on his ear causing concern. It has been present for nine months and no change in appearance had been observed. The patient did deny any peeling or bleeding. A core biopsy performed on 05/22/2016 revealed a malignant melanoma with Breslow level of 0.76 mm. The patient also has a history of a malignant melanoma excised from his back approximately seven years [address] by Dr. Colunga. He also has a history of basal cell carcinoma of the face and arms. On exam, he had a 1.4 cm dark brown and irregular lesion of the right mid helical rim. It was slightly raised with scale. There was no ulceration. In detailed discussion with the patient preoperatively, the risks, benefits and alternatives of excision of the lesion were reviewed including, but not limited to, bleeding, infection, poor or keloid scarring, residual and/or recurrent disease, delayed healing, possible partial or complete loss of the flap or graft. The patient understood and wished to proceed. Medical clearance was obtained from Noa Petty MD and Lurdes Powell MD DESCRIPTION OF PROCEDURE The patient was marked preoperatively and then brought to the operating room where, after suitable IV sedation had been obtained, the face and ear were prepped and draped in the usual sterile manner. The involved area was then infiltrated with 1% lidocaine with epinephrine. The lesion was then excised and handed off as a specimen with a tag at the 12 o'clock margin. Hemostasis throughout was obtained using electrocautery. The wound was then closed in one layer using interrupted 6-0 nylon. Benzoin and Steri-Strips were applied, as well as a dry sterile dressing and Mefix tape. The patient was then brought to the recovery room in stable condition. Estimated blood loss was less than 10 mL. The case was clean. Specimens: Melanoma of the right ear. [facility]
== END 2016-06-07 11:25 | disposition home or self-care (01) ==
LOC: SCU 06:50
PROVIDERS: ATTEND Surgery Plastic and Reconstructive Surgery
DX: C43.21 Malignant melanoma of right ear and external auricular canal (principal); Z85.828 Personal history of other malignant neoplasm of skin
CPT/HCPCS: 11644; 36415; 80048; 88305; J2250; J3010; J7120

== ENCOUNTER → 2016-07-26 | Outpatient (CLI) | payer MEDICARE, BC ==
[~2016-07-26] VITALS: Ht 180.3 cm; Wt 75.9 kg
[~2016-07-26] MED LIST changes: +ACET1TAB12 PO; +CLIN-89 PO; -NIAC500C9 PO; +REGADENOSON 0.4mg/5ml INJECTION IV ONE; +SALINE FLUSH 10ml SYRINGE ONE
--- NOTE | 2016-07-27 19:03 | ADENOSINEF ---
MYOCARDIAL PHARMACOLOGICAL PERFUSION SCAN DATE OF PROCEDURE 07/26/2016 NARRATIVE OF PROCEDURE The patient received 12.9 mCi of 99mTc Myoview for the rest portion and 31.3 mCi of 99mTc Myoview for the stress portion. He received 0.4 mg of Lexiscan. His baseline EKG is 100% paced and is therefore uninterpretable. Resting blood pressure was 182/87. Resting heart rate was 65. CONCLUSION 1. Scintigraphically negative for ischemia with a mild inferior wall scar. 2. Decreased LV function with no significant wall motion abnormalities noted with global hypokinesis. Ejection fraction was measured at 34%, probably better than this. 3. Hypertensive blood pressure at baseline. 4. No chest pain noted during the procedure. MTDD
== END ==
LOC: IMA 07:56
PROVIDERS: ATTEND Internal Medicine Cardiovascular Disease
DX: I25.10 Atherosclerotic heart disease of native coronary artery without angina pectoris (principal); R03.0 Elevated blood-pressure reading, without diagnosis of hypertension
CPT/HCPCS: 78452; 93017; A9502; J2785